=== PATIENT | female | born 1990 | race Caucasian/White ===

== ENCOUNTER 2018-06-08 19:25 | Inpatient (IN) | payer BC ==
[2018-06-08] MEDS ORDERED: hydrOXYzine Pamoate 25 MG Cap PO ONE (20:25)
[2018-06-08] MEDS ORDERED: Tranexamic Acid 1,000 MG in Sodium Chloride 0.9% 100 ML IV PRN (21:58)
[2018-06-08] MEDS ORDERED: Sodium Chloride 0.9% 2.5 ML Syringe FLUSH PRN (21:58)
[2018-06-08] MEDS ORDERED: Butorphanol 1 MG/ML SDV IVPUSH PRN (21:58)
[2018-06-08] MEDS ORDERED: Methylergonovine 0.2 MG/1 ML Amp IM PRN (21:58)
[2018-06-08] MEDS ORDERED: Nalbuphine 10 MG/1 ML Vial IVPUSH PRN (21:58)
[2018-06-08] MEDS ORDERED: Sodium Chloride 0.9% 10 ML Syringe FLUSH PRN (21:58)
[2018-06-08] MEDS ORDERED: Water For Irrigation,Sterile 1,000 ML Container IRR PRN (21:58)
[2018-06-08] MEDS ORDERED: Carboprost Tromethamine 250 MCG/1 ML Amp IM PRN (21:58)
[2018-06-08] MEDS ORDERED: Lidocaine 1% 50 ML MDV INJECT PRN (21:58)
[2018-06-08] MEDS ORDERED: Misoprostol 200 MCG Tab PO PRN (21:58)
[2018-06-08] MEDS ORDERED: Oxytocin/0.9 % Sodium Chloride 30 UNIT/500 ML BAG IV SCH (22:00)
[2018-06-08] MEDS: Lactated Ringers 1,000 ML IV SCH ×2 (22:21→23:12)
[2018-06-08] MEDS ORDERED: fentaNYL 100 MCG/2 ML SDV ONE (22:48)
--- NOTE | 2018-06-08 23:09 | PCM.PREANE ---
Preanesthetic Assessment - Anesthesia/Transfusion/Family Hx Anesthesia History: Prior Anesthesia Without Reaction Family History of Anesthesia Reaction: No Intubation History: Unknown - Review of Systems General: Other (labor pain with rapid progression) Pulmonary: No Symptoms Cardiovascular: No Symptoms Gastrointestinal: No Symptoms Neurological: No Symptoms Other: Reports: None - Physical Assessment NPO Status Date: 06/08/18 NPO Status Time: 22:00 Blood Pressure: 115/74 Height: 5 ft 8 in Weight: 174 lb ASA Class: 2 Mental Status: Alert & Oriented x3 Airway Class: Mallampati = 2 Dentition: Reports: Normal Dentition ROM/Head Extension: Full Lungs: Clear to Auscultation, Normal Respiratory Effort Cardiovascular: Regular Rate, Regular Rhythm - Lab Values: Laboratory Last Values WBC 9.15 K/uL (4.0-11.0) 06/08/18 22: RBC 4.33 M/uL (4.30-5.90) 06/08/18 22:28 Hgb 10.9 g/dL (12.0-16.0) L 06/08/18 22:28 Hct 34.0 % (36.0-46.0) L 06/08/18 22:28 MCV 78.5 fL (80.0-98.0) L 06/08/18 22:28 MCH 25.2 pg (27.0-32.0) L 06/08/18 22:28 MCHC 32.1 g/dL (31.0-37.0) 06/08/18 22:28 RDW Std Deviation 39.1 fl (28.0-62.0) 06/08/18 22:28 RDW Coeff of Estiven 14 % (11.0-15.0) 06/08/18 22:28 Plt Count 173 K/uL (150-400) 06/08/18 22:28 MPV 9.90 fL (7.40-12.00) 06/08/18 22:28 Nucleated RBC % 0.0 /100WBC 06/08/18 22:28 Nucleated RBCs # 0 K/uL 06/08/18 22:28 Membrane Rupture POSITIVE 06/08/18 21:45 - Allergies Allergies/Adverse Reactions: Allergies Allergy/AdvReac Type Severity Reaction Status Date / Time No Known Allergies Allergy Verified 06/26/14 15:14 - Blood Blood Available: No Product(s) Available: None - Anesthesia Plan Free Text/Narrative:: SAB for rapid progression of labor - if labor slows down, willing to place epidural if needed - Acknowledgements Anesthesia Type Planned: Spinal Pt an Appropriate Candidate for the Planned Anesthesia: Yes Alternatives and Risks of Anesthesia Discussed w Pt/Guardian: Yes Pt/Guardian Understands and Agrees with Anesthesia Plan: Yes PreAnesthesia Questionnaire 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: Neurological History: Reports: Cerebral Palsy, Seizure (one time approx 4 yrs ago - currently not on any medications) Psychiatric History: Reports: Anxiety - Past Surgical History HEENT Surgical History: Reports: Oral Surgery Musculoskeletal Surgical History: Reports: Other (See Below) (bilateral knee surgery) - HOME MEDS Home Medications: Home Meds PNV95/Ferrous Fumarate/FA [ Tablet] 06/26/14 [History] - CURRENT (IN HOUSE) MEDS Current Meds: Current Medications Butorphanol Tartrate (Stadol) 1 mg IVPUSH Q1H PRN PRN Reason: Pain Carboprost Tromethamine (Hemabate Ds) 250 mcg IM ASDIRECTED PRN PRN Reason: Post Hemorrhage Tranexamic Acid 1,000 mg/ (Sodium Chloride) 110 mls @ 660 mls/hr IV ONETIME PRN PRN Reason: Bleeding Lactated Ringer's (Ringers, Lactated) 1,000 mls @ 150 mls/hr IV ASDIRECTED LEXI Oxytocin/Sodium Chloride (Oxytocin 30 Unit/500 Ml-Ns) 30 unit in 500 mls @ 999 mls/hr IV TITRATE LEXI Lidocaine HCl (Xylocaine 1%) 50 ml INJECT .ONCE PRN PRN Reason: Laceration repair Methylergonovine Maleate (Methergine) 0.2 mg IM ASDIRECTED PRN PRN Reason: Post Hemorrhage Misoprostol (Cytotec) 200 mcg PO .ONCE PRN PRN Reason: Post Hemorrhage Nalbuphine HCl (Nubain) 10 mg IVPUSH Q1H PRN PRN Reason: Pain (severe 7-10) Sodium Chloride (Saline Flush) 10 ml FLUSH ASDIRECTED PRN PRN Reason: Keep Vein Open Sodium Chloride (Saline Flush) 2.5 ml FLUSH ASDIRECTED PRN PRN Reason: Keep Vein Open Sterile Water (Sterile Water For Irrigation) 1,000 ml IRR ASDIRECTED PRN PRN Reason: delivery Discontinued Medications Fentanyl (Sublimaze) Confirm Administered Dose 100 mcg .ROUTE .STK-MED ONE Stop: 06/08/18 22:49 Hydroxyzine Pamoate (Vistaril) 25 mg PO ONETIME ONE Stop: 06/08/18 20:26 Last Admin: 06/08/18 20:38 Dose: 25 mg
[2018-06-09] MEDS ORDERED: Lanolin 100% Cream 7 GM Tube TOP PRN (00:24)
[2018-06-09] MEDS ORDERED: Benzocaine/Menthol 20%-0.5% Spray 78 GM Cannister TOP PRN (00:24)
[2018-06-09] MEDS ORDERED: Ibuprofen 400 MG Tab PO PRN (00:24)
[2018-06-09] MEDS ORDERED: Docusate Sodium 100 MG Cap PO PRN (00:24)
[2018-06-09] MEDS ORDERED: Witch Hazel Medicated Pads 40/Jar TOP PRN (00:24)
[2018-06-09] MEDS ORDERED: oxyCODONE 5 MG Tab PO PRN (00:24)
[2018-06-09] MEDS ORDERED: Bisacodyl 10 MG Supp RECTAL PRN (00:24)
[2018-06-09] MEDS ORDERED: Acetaminophen 500 MG Tab PO PRN ×2 (00:24)
--- NOTE | 2018-06-09 00:29 | PCM.DEL ---
L & D Note - General Info Date of Service: 06/08/18 - Delivery Note Labor: Spontaneous Delivery Outcome: Livebirth Presentation: Right Occiput Anterior (JUAN) Nuchal Cord: None Anesthesia Type: None, Epidural Amniotic Fluid Description: Meconium Stained Episiotomy Type: None Laceration: None Placenta: Spontaneous Cord: 3 Vessels Estimated Blood Loss: 350 Resuscitation Needed: No [place]: Suctioned, Bulb Syringe Score 1 min: 8 Score 5 min: 9 Delivery Comments (Free Text/Narrative):: Live male delivered at 2325 8/9 , wt 3560g . 3VC , intact perineum - General Info Date of Service: 06/08/18 - Patient Data Vitals - Most Recent: Last Vital Signs Temp Pulse Resp BP 115/74 06/08/18 23:09 Pulse Ox Weight - Most Recent: 78.925 kg Lab Results Last 24 Hours: Laboratory Results - last 24 hr 06/08/18 06/08/18 06/08/18 Range/Units 21:45 22:28 22:28 WBC 9.15 (4.0-11.0) K/uL RBC 4.33 (4.30-5.90) M/uL Hgb 10.9 L (12.0-16.0) g/dL Hct 34.0 L (36.0-46.0) % MCV 78.5 L (80.0-98.0) fL MCH 25.2 L (27.0-32.0) pg MCHC 32.1 (31.0-37.0) g/dL RDW Std Deviation 39.1 (28.0-62.0) fl RDW Coeff of Estiven 14 (11.0-15.0) % Plt Count 173 (150-400) K/uL MPV 9.90 (7.40-12.00) fL Nucleated RBC % 0.0 /100WBC Nucleated RBCs # 0 K/uL Membrane Rupture POSITIVE Blood Type A POSITIVE Antibody Screen NEGATIVE Med Orders - Current: Current Medications Carboprost Tromethamine (Hemabate Ds) 250 mcg IM ASDIRECTED PRN PRN Reason: Post Hemorrhage Tranexamic Acid 1,000 mg/ (Sodium Chloride) 110 mls @ 660 mls/hr IV ONETIME PRN PRN Reason: Bleeding Lactated Ringer's (Ringers, Lactated) 1,000 mls @ 150 mls/hr IV ASDIRECTED LEXI Last Admin: 06/08/18 23:12 Dose: 150 mls/hr Oxytocin/Sodium Chloride (Oxytocin 30 Unit/500 Ml-Ns) 30 unit in 500 mls @ 999 mls/hr IV TITRATE LEXI Lidocaine HCl (Xylocaine 1%) 50 ml INJECT .ONCE PRN PRN Reason: Laceration repair Methylergonovine Maleate (Methergine) 0.2 mg IM ASDIRECTED PRN PRN Reason: Post Hemorrhage Misoprostol (Cytotec) 200 mcg PO .ONCE PRN PRN Reason: Post Hemorrhage Nalbuphine HCl (Nubain) 10 mg IVPUSH Q1H PRN PRN Reason: Pain (severe 7-10) Sodium Chloride (Saline Flush) 10 ml FLUSH ASDIRECTED PRN PRN Reason: Keep Vein Open Sodium Chloride (Saline Flush) 2.5 ml FLUSH ASDIRECTED PRN PRN Reason: Keep Vein Open Sterile Water (Sterile Water For Irrigation) 1,000 ml IRR ASDIRECTED PRN PRN Reason: delivery Discontinued Medications Butorphanol Tartrate (Stadol) 1 mg IVPUSH Q1H PRN PRN Reason: Pain Fentanyl (Sublimaze) Confirm Administered Dose 100 mcg .ROUTE .STK-MED ONE Stop: 06/08/18 22:49 Hydroxyzine Pamoate (Vistaril) 25 mg PO ONETIME ONE Stop: 06/08/18 20:26 Last Admin: 06/08/18 20:38 Dose: 25 mg - Problem List & Annotations (1) Vaginal delivery SNOMED Code(s): 201788227 Code(s): O80 - ENCOUNTER FOR FULL-TERM UNCOMPLICATED DELIVERY Status: Acute Current Visit: Yes - Problem List Review Problem List Initiated/Reviewed/Updated: Yes - My Orders Last 24 Hours: My Active Orders 06/08/18 20:06 Patient Status [ADT] Routine Non Stress Test [RC] PER UNIT ROUTINE Up ad Sabina [RC] ASDIRECTED Vaginal Exam [RC] Click to Edit Vital Signs [RC] PER UNIT ROUTINE 06/08/18 21:58 Patient Status [ADT] Routine Heart Tones [RC] CONTINUOUS Non Stress Test [RC] PER UNIT ROUTINE May Shower [RC] ASDIRECTED Notify Provider [RC] PRN Up ad Sabina [RC] ASDIRECTED Vaginal Exam [RC] PRN Vital Signs [RC] PER UNIT ROUTINE Carboprost Tromethamine [Hemabate DS] 250 mcg IM ASDIRECTED PRN Lidocaine 1% [Xylocaine 1%] 50 ml INJECT .ONCE PRN Methylergonovine [Methergine] 0.2 mg IM ASDIRECTED PRN Misoprostol [Cytotec] 200 mcg PO .ONCE PRN Nalbuphine [Nubain] 10 mg IVPUSH Q1H PRN Sodium Chloride 0.9% [Saline Flush] 10 ml FLUSH ASDIRECTED PRN Sodium Chloride 0.9% [Saline Flush] 2.5 ml FLUSH ASDIRECTED PRN Tranexamic Acid [Cyklokapron] 1,000 mg Sodium Chloride 0.9% [Normal Saline] 100 ml IV ONETIME Water For Irrigation,Sterile [Sterile Water for Irrigation] 1,000 ml IRR ASDIRECTED PRN Peripheral IV Insertion Adult [OM.PC] Routine 06/08/18 22:00 Lactated Ringers [Ringers, Lactated] 1,000 ml IV ASDIRECTED Oxytocin/0.9 % Sodium Chloride [Oxytocin 30 Unit/500 ML-NS] 30 unit in 500 ml IV TITRATE 06/09/18 00:24 Patient Status [ADT] Routine May Shower [RC] ASDIRECTED Up ad Sabina [RC] ASDIRECTED Vital Signs [RC] PER UNIT ROUTINE Acetaminophen [Tylenol Extra Strength] 1,000 mg PO Q4H PRN Acetaminophen [Tylenol Extra Strength] 500 mg PO Q4H PRN Benzocaine/Menthol [Dermoplast Pain Relief 20%-0.5% [place]] 78 gm TOP ASDIRECTED PRN Bisacodyl [Dulcolax] 10 mg RECTAL .ONCE PRN Docusate Sodium [Colace] 100 mg PO BID PRN Ibuprofen [Motrin] 400 mg PO Q4H PRN Ibuprofen [Motrin] 800 mg PO Q6H PRN Lanolin [Lansinoh HPA] See Dose Instructions TOP ASDIRECTED PRN Witch Karolina [Tucks] 1 pad TOP ASDIRECTED PRN oxyCODONE 5 mg PO Q2H PRN Assess Lochia [WOMSER] Per Unit Routine Assess Uterine Involution [WOMSER] Per Unit Routine Peripheral IV Discontinue [OM.PC] Routine Resuscitation Status Routine 06/09/18 10:00 Measles, Mumps & Rubella [M-M-R II Vaccine] 0.5 ml SUBCUT .ONCE ONE 06/10/18 05:11 HEMOGLOBIN/HEMATOCRIT,HH [HEME] Timed
--- NOTE | 2018-06-09 01:19 | OR ---
SURGEON: ASHLYN LISA DATE OF PROCEDURE: 06/08/2018 PREOPERATIVE DIAGNOSIS: A 27-year-old G3, P2-0-0-2, at 39 weeks 5 days, admitted in early labor, had a normal spontaneous vaginal delivery. POSTOPERATIVE DIAGNOSIS: A 27-year-old G3, P2-0-0-2, at 39 weeks 5 days, admitted in early labor, had a normal spontaneous vaginal delivery. PROCEDURE: Normal spontaneous vaginal delivery. ESTIMATED BLOOD LOSS: 350 mL. ANESTHESIA: Epidural. FINDINGS: A live female , delivered at 2325 hours. scores were 8 and 9. Weight was 3560 g. Three-vessel cord. Perineum was intact. BRIEF HISTORY ABOUT PATIENT: She is a 27-year-old G3, P2-0-0-2, who came in early labor. She made change from 2 cm to 4 cm then fully dilated. She also spontaneously ruptured membranes prior and had thick meconium . The patient was encouraged to push. Intrapartum , the patient had a category 1 heart tracing. DESCRIPTION OF PROCEDURE: With the patient's good pushing effort, she delivered the head, followed by the anterior and posterior shoulders, and the body of the . The paste mixing supervisor was present and the infant was placed on the maternal abdomen, and the cord was clamped and cut, cord gases was obtained and the placenta was then delivered via controlled cord traction. The perineum was noted to be intact. All instrument and pad count were correct x2. The patient was left with in stable condition. MARGI DANG /[id number] QI
[2018-06-09] MEDS: Ibuprofen 800 MG Tab PO PRN ×2 (02:02→17:20)
--- NOTE | 2018-06-09 07:22 | PCM.PNPP ---
- General Info Date of Service: 06/09/18 Subjective Update: 27 yo s/p PPD1 , denies any complains Functional Status: Reports: Pain Controlled - Review of Systems General: Reports: No Symptoms HEENT: Reports: No Symptoms Pulmonary: Reports: No Symptoms Cardiovascular: Reports: No Symptoms Gastrointestinal: Reports: No Symptoms Genitourinary: Reports: No Symptoms Musculoskeletal: Reports: No Symptoms Skin: Reports: No Symptoms Neurological: Reports: No Symptoms - General Info Date of Service: 06/09/18 - Patient Data Vital Signs - Most Recent: Last Vital Signs Temp 36.7 C 06/09/18 04:42 Pulse 92 06/09/18 04:42 Resp 16 06/09/18 04:42 BP 108/58 L 06/09/18 04:42 Pulse Ox 95 06/09/18 04:42 Weight - Most Recent: 78.925 kg Lab Results - Last 24 Hours: Laboratory Results - last 24 hr 06/08/18 06/08/18 06/08/18 Range/Units 21:45 22:28 22:28 WBC 9.15 (4.0-11.0) K/uL RBC 4.33 (4.30-5.90) M/uL Hgb 10.9 L (12.0-16.0) g/dL Hct 34.0 L (36.0-46.0) % MCV 78.5 L (80.0-98.0) fL MCH 25.2 L (27.0-32.0) pg MCHC 32.1 (31.0-37.0) g/dL RDW Std Deviation 39.1 (28.0-62.0) fl RDW Coeff of Estiven 14 (11.0-15.0) % Plt Count 173 (150-400) K/uL MPV 9.90 (7.40-12.00) fL Nucleated RBC % 0.0 /100WBC Nucleated RBCs # 0 K/uL Membrane Rupture POSITIVE Blood Type A POSITIVE Antibody Screen NEGATIVE Med Orders - Current: Current Medications Acetaminophen (Tylenol Extra Strength) 500 mg PO Q4H PRN PRN Reason: Pain Acetaminophen (Tylenol Extra Strength) 1,000 mg PO Q4H PRN PRN Reason: Pain Benzocaine/Menthol (Dermoplast Pain Relief 20%-0.5% [place]) 78 gm TOP ASDIRECTED PRN PRN Reason: Perineal Comfort Measure Last Admin: 06/09/18 02:00 Dose: 78 gm Bisacodyl (Dulcolax) 10 mg RECTAL .ONCE PRN PRN Reason: Constipation Carboprost Tromethamine (Hemabate Ds) 250 mcg IM ASDIRECTED PRN PRN Reason: Post Hemorrhage Docusate Sodium (Colace) 100 mg PO BID PRN PRN Reason: Constipation Last Admin: 06/09/18 02:03 Dose: 100 mg Emollient Ointment (Lansinoh Hpa) 0 gm TOP ASDIRECTED PRN PRN Reason: Sore Nipples Last Admin: 06/09/18 02:03 Dose: 7 gm Tranexamic Acid 1,000 mg/ (Sodium Chloride) 110 mls @ 660 mls/hr IV ONETIME PRN PRN Reason: Bleeding Lactated Ringer's (Ringers, Lactated) 1,000 mls @ 150 mls/hr IV ASDIRECTED LEXI Last Admin: 06/08/18 23:12 Dose: 150 mls/hr Oxytocin/Sodium Chloride (Oxytocin 30 Unit/500 Ml-Ns) 30 unit in 500 mls @ 999 mls/hr IV TITRATE [facility] Last Admin: 06/08/18 23:25 Dose: 999 mls/hr Ibuprofen (Motrin) 400 mg PO Q4H PRN PRN Reason: Pain Ibuprofen (Motrin) 800 mg PO Q6H PRN PRN Reason: Pain Last Admin: 06/09/18 02:02 Dose: 800 mg Lidocaine HCl (Xylocaine 1%) 50 ml INJECT .ONCE PRN PRN Reason: Laceration repair Measles/Mumps/Rubella Vaccine Live (M-M-R Ii Vaccine) 0.5 ml SUBCUT .ONCE ONE Stop: 06/09/18 10:01 Methylergonovine Maleate (Methergine) 0.2 mg IM ASDIRECTED PRN PRN Reason: Post Hemorrhage Misoprostol (Cytotec) 200 mcg PO .ONCE PRN PRN Reason: Post Hemorrhage Nalbuphine HCl (Nubain) 10 mg IVPUSH Q1H PRN PRN Reason: Pain (severe 7-10) Oxycodone HCl (Oxycodone) 5 mg PO Q2H PRN PRN Reason: Pain Sodium Chloride (Saline Flush) 10 ml FLUSH ASDIRECTED PRN PRN Reason: Keep Vein Open Sodium Chloride (Saline Flush) 2.5 ml FLUSH ASDIRECTED PRN PRN Reason: Keep Vein Open Sterile Water (Sterile Water For Irrigation) 1,000 ml IRR ASDIRECTED PRN PRN Reason: delivery Sendy Turcios (Tucks) 1 pad TOP ASDIRECTED PRN PRN Reason: comfort care Last Admin: 06/09/18 02:01 Dose: 1 pad Discontinued Medications Butorphanol Tartrate (Stadol) 1 mg IVPUSH Q1H PRN PRN Reason: Pain Fentanyl (Sublimaze) Confirm Administered Dose 100 mcg .ROUTE .STK-MED ONE Stop: 06/08/18 22:49 Last Admin: 06/09/18 05:54 Dose: Not Given Hydroxyzine Pamoate (Vistaril) 25 mg PO ONETIME ONE Stop: 06/08/18 20:26 Last Admin: 06/08/18 20:38 Dose: 25 mg - Interaction Support Person: - Recovery Exam Fundal Tone: Firm Fundal Level: 1 Fingerbreadths Below Umbilicus Fundal Placement: Midline Lochia Amount: Scant, Small Lochia Color: Rubra/Red Perineum Description: Intact, Minimal Bruising/Swelling Episiotomy/Laceration: None Bladder Status: Voiding Urinary Elimination: Voided - Exam General: Alert HEENT: Pupils Equal Neck: Supple Lungs: Clear to Auscultation Cardiovascular: Regular Rate, Regular Rhythm GI/Abdominal Exam: Normal Bowel Sounds Extremities: Normal Inspection Skin: Warm Neurological: No New Focal Deficit Psy/Mental Status: Alert - Problem List & Annotations (1) Vaginal delivery SNOMED Code(s): 940451990 Code(s): O80 - ENCOUNTER FOR FULL-TERM UNCOMPLICATED DELIVERY Status: Acute Current Visit: Yes - Problem List Review Problem List Initiated/Reviewed/Updated: Yes - My Orders Last 24 Hours: My Active Orders 06/08/18 20:06 Patient Status [ADT] Routine Non Stress Test [RC] PER UNIT ROUTINE Up ad Sabina [RC] ASDIRECTED Vital Signs [RC] PER UNIT ROUTINE 06/08/18 21:58 Patient Status [ADT] Routine Heart Tones [RC] CONTINUOUS Non Stress Test [RC] PER UNIT ROUTINE May Shower [RC] ASDIRECTED Notify Provider [RC] PRN Carboprost Tromethamine [Hemabate DS] 250 mcg IM ASDIRECTED PRN Lidocaine 1% [Xylocaine 1%] 50 ml INJECT .ONCE PRN Methylergonovine [Methergine] 0.2 mg IM ASDIRECTED PRN Misoprostol [Cytotec] 200 mcg PO .ONCE PRN Nalbuphine [Nubain] 10 mg IVPUSH Q1H PRN Sodium Chloride 0.9% [Saline Flush] 10 ml FLUSH ASDIRECTED PRN Sodium Chloride 0.9% [Saline Flush] 2.5 ml FLUSH ASDIRECTED PRN Tranexamic Acid [Cyklokapron] 1,000 mg Sodium Chloride 0.9% [Normal Saline] 100 ml IV ONETIME Water For Irrigation,Sterile [Sterile Water for Irrigation] 1,000 ml IRR ASDIRECTED PRN Peripheral IV Insertion Adult [OM.PC] Routine 06/08/18 22:00 Lactated Ringers [Ringers, Lactated] 1,000 ml IV ASDIRECTED Oxytocin/0.9 % Sodium Chloride [Oxytocin 30 Unit/500 ML-NS] 30 unit in 500 ml IV TITRATE 06/09/18 00:24 Patient Status [ADT] Routine May Shower [RC] ASDIRECTED Up ad Sabina [RC] ASDIRECTED Vital Signs [RC] PER UNIT ROUTINE Acetaminophen [Tylenol Extra Strength] 1,000 mg PO Q4H PRN Acetaminophen [Tylenol Extra Strength] 500 mg PO Q4H PRN Benzocaine/Menthol [Dermoplast Pain Relief 20%-0.5% [place]] 78 gm TOP ASDIRECTED PRN Bisacodyl [Dulcolax] 10 mg RECTAL .ONCE PRN Docusate Sodium [Colace] 100 mg PO BID PRN Ibuprofen [Motrin] 400 mg PO Q4H PRN Ibuprofen [Motrin] 800 mg PO Q6H PRN Lanolin [Lansinoh HPA] See Dose Instructions TOP ASDIRECTED PRN Witch Karolina [Tucks] 1 pad TOP ASDIRECTED PRN oxyCODONE 5 mg PO Q2H PRN Assess Lochia [WOMSER] Per Unit Routine Assess Uterine Involution [WOMSER] Per Unit Routine Peripheral IV Discontinue [OM.PC] Routine Resuscitation Status Routine 06/09/18 10:00 Measles, Mumps & Rubella [M-M-R II Vaccine] 0.5 ml SUBCUT .ONCE ONE 06/09/18 Breakfast Regular Diet [DIET] 06/10/18 05:11 HEMOGLOBIN/HEMATOCRIT,HH [HEME] Timed - Assessment Assessment:: 27 yo s/p PPD 1 , stable - Plan Plan:: Routine care Continue
[2018-06-09] MEDS ORDERED: Nalbuphine 10 MG/ML 10 ML MDV IVPUSH PRN (07:30)
--- NOTE | 2018-06-09 09:41 | PCM48HPAN ---
Post Anesthesia Note - EVALUATION WITHIN 48HRS OF ANESTHETIC Vital Signs in Normal Range: Yes Patient Participated in Evaluation: Yes Respiratory Function Stable: Yes Airway Patent: Yes Cardiovascular Function Stable: Yes Hydration Status Stable: Yes Pain Control Satisfactory: Yes Nausea and Vomiting Control Satisfactory: Yes Mental Status Recovered: Yes Resp Rate: 16 Blood Pressure: 115/74
[2018-06-09] MEDS ORDERED: Measles, Mumps & Rubella Vaccine 0.5 ML SDV SUBCUT ONE (10:00)
[2018-06-10] MEDS: Ibuprofen 800 MG Tab PO PRN (06:32)
[2018-06-10 08:08] VITALS: BP 123/77
--- NOTE | 2018-06-10 08:49 | PCM.PNPP ---
- General Info Date of Service: 06/10/18 Admission Dx/Problem (Free Text): PPD#1 after , stable working on . Functional Status: Reports: Pain Controlled, Tolerating Diet, Ambulating, Urinating - Review of Systems General: Reports: No Symptoms HEENT: Reports: No Symptoms Pulmonary: Reports: No Symptoms Cardiovascular: Reports: No Symptoms Gastrointestinal: Reports: No Symptoms Genitourinary: Reports: No Symptoms Musculoskeletal: Reports: No Symptoms Skin: Reports: No Symptoms Neurological: Reports: No Symptoms Psychiatric: Reports: No Symptoms - Patient Data Vital Signs - Most Recent: Last Vital Signs Temp 36.2 C 06/10/18 08:07 Pulse 102 H 06/10/18 08:07 Resp 16 06/10/18 08:07 BP 123/77 06/10/18 08:07 Pulse Ox 96 06/10/18 08:07 Weight - Most Recent: 78.925 kg Lab Results - Last 24 Hours: Laboratory Results - last 24 hr 06/10/18 Range/Units 05:22 Hgb 10.1 L (12.0-16.0) g/dL Hct 32.0 L (36.0-46.0) % Med Orders - Current: Current Medications Acetaminophen (Tylenol Extra Strength) 500 mg PO Q4H PRN PRN Reason: Pain Acetaminophen (Tylenol Extra Strength) 1,000 mg PO Q4H PRN PRN Reason: Pain Benzocaine/Menthol (Dermoplast Pain Relief 20%-0.5% [place]) 78 gm TOP ASDIRECTED PRN PRN Reason: Perineal Comfort Measure Last Admin: 06/09/18 02:00 Dose: 78 gm Bisacodyl (Dulcolax) 10 mg RECTAL .ONCE PRN PRN Reason: Constipation Carboprost Tromethamine (Hemabate Ds) 250 mcg IM ASDIRECTED PRN PRN Reason: Post Hemorrhage Docusate Sodium (Colace) 100 mg PO BID PRN PRN Reason: Constipation Last Admin: 06/09/18 02:03 Dose: 100 mg Emollient Ointment (Lansinoh Hpa) 0 gm TOP ASDIRECTED PRN PRN Reason: Sore Nipples Last Admin: 06/09/18 02:03 Dose: 7 gm Tranexamic Acid 1,000 mg/ (Sodium Chloride) 110 mls @ 660 mls/hr IV ONETIME PRN PRN Reason: Bleeding Lactated Ringer's (Ringers, Lactated) 1,000 mls @ 150 mls/hr IV ASDIRECTED [facility] Last Admin: 06/08/18 23:12 Dose: 150 mls/hr Oxytocin/Sodium Chloride (Oxytocin 30 Unit/500 Ml-Ns) 30 unit in 500 mls @ 999 mls/hr IV TITRATE [facility] Last Admin: 06/08/18 23:25 Dose: 999 mls/hr Ibuprofen (Motrin) 400 mg PO Q4H PRN PRN Reason: Pain Ibuprofen (Motrin) 800 mg PO Q6H PRN PRN Reason: Pain Last Admin: 06/10/18 06:32 Dose: 800 mg Lidocaine HCl (Xylocaine 1%) 50 ml INJECT .ONCE PRN PRN Reason: Laceration repair Methylergonovine Maleate (Methergine) 0.2 mg IM ASDIRECTED PRN PRN Reason: Post Hemorrhage Misoprostol (Cytotec) 200 mcg PO .ONCE PRN PRN Reason: Post Hemorrhage Nalbuphine HCl (Nubain) 10 mg IVPUSH Q1H PRN PRN Reason: Pain (severe 7-10) Oxycodone HCl (Oxycodone) 5 mg PO Q2H PRN PRN Reason: Pain Sodium Chloride (Saline Flush) 10 ml FLUSH ASDIRECTED PRN PRN Reason: Keep Vein Open Sodium Chloride (Saline Flush) 2.5 ml FLUSH ASDIRECTED PRN PRN Reason: Keep Vein Open Sterile Water (Sterile Water For Irrigation) 1,000 ml IRR ASDIRECTED PRN PRN Reason: delivery Sendy Turcios ([place]) 1 pad TOP ASDIRECTED PRN PRN Reason: comfort care Last Admin: 06/09/18 02:01 Dose: 1 pad Discontinued Medications Butorphanol Tartrate (Stadol) 1 mg IVPUSH Q1H PRN PRN Reason: Pain Fentanyl (Sublimaze) Confirm Administered Dose 100 mcg .ROUTE .STK-MED ONE Stop: 06/08/18 22:49 Last Admin: 06/09/18 05:54 Dose: Not Given Hydroxyzine Pamoate (Vistaril) 25 mg PO ONETIME ONE Stop: 06/08/18 20:26 Last Admin: 06/08/18 20:38 Dose: 25 mg Measles/Mumps/Rubella Vaccine Live (M-M-R Ii Vaccine) 0.5 ml SUBCUT .ONCE ONE Stop: 06/09/18 10:01 Nalbuphine HCl (Nubain) 10 mg IVPUSH Q1H PRN PRN Reason: Pain (severe 7-10) - Interaction Support Person: - Recovery Exam Fundal Tone: Firm Fundal Level: 2 Fingerbreadths Below Umbilicus Fundal Placement: Midline Lochia Amount: Small Lochia Color: Rubra/Red Perineum Description: Intact, Minimal Bruising/Swelling Episiotomy/Laceration: None Bladder Status: Voiding Urinary Elimination: Voided - Exam General: Alert, Oriented HEENT: Pupils Equal Neck: Supple Lungs: Normal Respiratory Effort GI/Abdominal Exam: Soft, Non-Tender, No Distention, No Mass Extremities: Normal Inspection, Normal Range of Motion, Non-Tender, No Pedal Edema, Normal Capillary Refill Skin: Warm, Dry, Intact Neurological: No New Focal Deficit Psy/Mental Status: Alert, Normal Affect, Normal Mood - Problem List & Annotations (1) Vaginal delivery SNOMED Code(s): 812706463 Code(s): O80 - ENCOUNTER FOR FULL-TERM UNCOMPLICATED DELIVERY Status: Acute Current Visit: Yes - Problem List Review Problem List Initiated/Reviewed/Updated: Yes - Assessment Assessment:: 27 yo s/p PPD 2, well. Minimal lochia, minimal pain would like to go home today. - Plan Plan:: Discharge instructions reviewed. Continue vitamins while , dismiss to home today.
== END 2018-06-10 11:18 | disposition home or self-care (01) | DRG 560 ==
LOC: MW.OBCHECK 19:25 → MW.OB 19:29 → MW.OBCHECK 21:58 → OBSVTOIN 23:25
PROVIDERS: ADMIT Obstetrics & Gynecology; ATTEND Obstetrics & Gynecology
PROC: 10E0XZZ Delivery of Products of Conception, External Approach (ICD-10-PCS; principal; 2018-06-08)
DX: O42.02 Full-term premature rupture of membranes, onset of labor within 24 hours of rupture (principal); Z3A.39 39 weeks gestation of pregnancy; Z37.0 Single live birth
CPT/HCPCS: 36415; 59025; 59409; 84112; 85014; 85018; 85027; 86850; 86900; 86901; 90471; 90707; A9270-GY; J2590; J7120

== ENCOUNTER 2020-10-08 12:22 | Emergency (ER) | payer BC ==
[2020-10-08 13:22] VITALS: BP 131/84; PULSE 96
--- NOTE | 2020-10-08 13:30 | EDM.PDOC ---
ED HPI GENERAL MEDICAL PROBLEM - General Chief Complaint: General Stated Complaint: KNEE AND HAND INJURY,SLIPPED ON ICE Time Seen by Provider: 10/08/20 13:18 Source of Information: Reports: Patient History Limitations: Reports: No Limitations - History of Present Illness INITIAL COMMENTS - FREE TEXT/NARRATIVE: 29-year-old female PMHx cerebral palsy presents with pain in her left hand and left knee following a fall on ice. Patient slipped and fell forward. She notes that her kneecap "popped out and popped back in". She notes that she has history of surgery on bilateral knees and that this is not an infrequent occurrence. She has been able to bear weight after the fall, denies hitting her head or LOC. Still has some mild pain in the knee but much improved. She does complain of deformity and pain in the fourth digit of her left hand. 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: Musculoskeletal History: Reports: None Other Musculoskeletal History: Broken L ankle, sx on bilat knees patellar dislocations Neurological History: Reports: Cerebral Palsy, Seizure Other Neuro History: Affects L side Psychiatric History: Reports: Anxiety Endocrine/Metabolic History: Reports: None Hematologic History: Reports: None Immunologic History: Reports: None Oncologic (Cancer) History: Reports: None Dermatologic History: Reports: None - Infectious Disease History Infectious Disease History: Reports: Chicken Pox - Past Surgical History Head Surgeries/Procedures: Reports: None HEENT Surgical History: Reports: Oral Surgery GI Surgical History: Reports: None Female Surgical History: Reports: None Musculoskeletal Surgical History: Reports: Other (See Below) Oncologic Surgical History: Reports: None Dermatological Surgical History: Reports: None Social & Family History - Family History Family Medical History: Noncontributory HEENT: Reports: None GI: Reports: None : Reports: None OBGYN: Reports: None Musculoskeletal: Reports: None Neurological: Reports: None Endocrine/Metabolic: Reports: Diabetes, type II, Other (See Below) Other Endocrine/Metabolic Family History: grandfather Hematologic: Reports: None Immunologic: Reports: None Dermatologic: Reports: None Oncologic: Reports: None - Caffeine Use Caffeine Use: Reports: None - Recreational Drug Use Recreational Drug Use: No ED ROS GENERAL - Review of Systems Review Of Systems: Comprehensive ROS is negative, except as noted in HPI. ED EXAM, GENERAL - Physical Exam Exam: See Below Exam Limited By: No Limitations General Appearance: Alert, WD/WN, No Apparent Distress Ears: Normal External Exam Nose: Normal Inspection Throat/Mouth: Normal Voice, No Airway Compromise Head: Atraumatic, Normocephalic Neck: Normal Inspection, Non-Tender Respiratory/Chest: No Respiratory Distress, No Accessory Muscle Use Cardiovascular: Normal Peripheral Pulses, Regular Rate, Rhythm Extremities: Other (mild swelling to L knee w/ overlying surgical scar well appearing, negative ballottment, no joint line TTP, normal ROM. moderate swelling and visible deformity to L 4th digit (note patient has baseline deform ities 2/2 CP so hard to tell if acute, is TTP)) Neurological: Alert Psychiatric: Normal Affect, Normal Mood Skin Exam: Warm, Dry, Intact Course - Vital Signs Last Recorded V/S: Last Vital Signs Temp 98.9 F 10/08/20 13:17 Pulse 96 10/08/20 13:17 Resp 18 10/08/20 13:17 BP 131/84 10/08/20 13:17 Pulse Ox 97 10/08/20 13:17 - Orders/Labs/Meds Orders: Active Orders 24 hr Category Date Time Status Hand 2V Lt [CR] Stat Exams 10/08/20 14:55 Ordered Meds: Medications Discontinued Medications Generic Name Dose Route Start Last Admin Trade Name Freq PRN Reason Stop Dose Admin Lidocaine HCl Confirm 10/08/20 13:33 Xylocaine-Mpf 1% Administered 10/08/20 13:34 Dose 5 ml .ROUTE .STK-MED ONE - Re-Assessments/Exams Free Text/Narrative Re-Assessment/Exam: 10/08/20 13:39 Lidocaine 1% applied in digital block on sterilized L 4th digit to anesthetize for ring removal. 5cc infiltrated utilizing digital block. Will f/u XR imaging and dispo accordingly. 10/08/20 13:42 Ring successfully removed by nurse Mac 10/08/20 15:12 Post reduction film is with greatly improved alignment. Will d/c with orthopedic f/u Departure - Departure Time of Disposition: 15:12 Disposition: Home, Self-Care 01 Clinical Impression: Metacarpal bone fracture Qualifiers: Encounter type: initial encounter Metacarpal bone: fourth Fracture type: closed Metacarpal location: unspecified portion of metacarpal Fracture alignment: displaced Laterality: left Qualified Code(s): S62.305A - Unspecified fracture of fourth metacarpal bone, left hand, initial encounter for closed fracture - Discharge Information Prescriptions: Acetaminophen/oxyCODONE [Percocet 325-5 MG] 1 each PO Q6H PRN #9 tab PRN Reason: Pain Instructions: Metacarpal Fracture Referrals: Marc Ortiz MD [Primary Care Provider] - Forms: ED Department Discharge Sepsis Event Note (ED) - Evaluation Sepsis Screening Result: No Definite Risk - Focused Exam Vital Signs: Vital Signs Temp Pulse Resp BP Pulse Ox 10/08/20 13:17 98.9 F 96 18 131/84 97 - My Orders Last 24 Hours: My Active Orders 10/08/20 14:55 Hand 2V Lt [CR] Stat - Assessment/Plan Last 24 Hours: My Active Orders 10/08/20 14:55 Hand 2V Lt [CR] Stat
--- NOTE | 2020-10-08 14:32 | CR ---
Indication: Fall Comparison: None available. Technique: AP amd lateral views left knee were obtained Findings: There is no displaced fracture or dislocation. There is tricompartmental degenerative changes of the knee with medial and patellofemoral joint space loss. There is bone anchors seen within the patella and well corticated opacity adjacent to the inferomedial aspect of the patella. There is a questionable small joint effusion. Impression: Postoperative change of the knees status post bone anchor within the patella. There is mild questionable soft tissue swelling without evidence of displaced fracture. Dictated by Rikki Reyez MD @ Oct 08 2020 2:28PM Signed by Dr. Rikki Reyez @ Oct 08 2020 2:30PM
--- NOTE | 2020-10-08 14:34 | CR ---
Indication: Fall Comparison: None available. Technique: AP amd lateral views left hand were obtained Findings: There is demonstration of a minimally displaced fracture at the base of the proximal 4th phalanx. There is no other displaced fracture identified. The joint spaces are grossly preserved. There is mild prominence of the soft tissues adjacent to the 4th phalanx. Impression: Demonstration of a minimally displaced fracture at the base of the proximal 4th phalanx with associated soft tissue swelling. Dictated by Rikki Reyez MD @ Oct 08 2020 2:30PM Signed by Dr. Rikki Reyez @ Oct 08 2020 2:32PM
--- NOTE | 2020-10-08 15:26 | CR ---
Indication: Injury and pain Technique: One view left hand Comparison: Two views left hand October 08, 2020 Findings: There is slightly improved alignment of comminuted fracture at the base of the proximal 4th phalanx with associated soft tissue swelling. No other acute osseous abnormality is noted. Impression: Improved alignment of comminuted fracture at the base of the proximal 4th phalanx. Dictated by Rikki Reyez MD @ Oct 08 2020 3:25PM Signed by Dr. Rikki Reyez @ Oct 08 2020 3:25PM
== END 2020-10-08 15:40 | disposition home or self-care (01) ==
LOC: MW.ED 12:22
DX: S62.305A Unspecified fracture of fourth metacarpal bone, left hand, initial encounter for closed fracture (principal); W00.0XXA Fall on same level due to ice and snow, initial encounter; Y93.01 Activity, walking, marching and hiking
CPT/HCPCS: 73120-26-LT; 73120-LT; 73140-26-F3; 73140-F3; 73560-26-LT; 73560-LT; 99283; 99283-25

== ENCOUNTER 2025-02-03 17:31 | Emergency (ER) | payer BC ==
[2025-02-03 18:29] LABS: BASOPHILS ABSOLUTE AUTO 0.06 K/uL (0.00-0.20); BASOPHILS PERCENT AUTO 0.5 % (0.0-1.0); EOSINOPHILS ABSOLUTE AUTO 0.16 K/uL (0.00-0.45); EOSINOPHILS PERCENT AUTO 1.4 % (0.0-6.0); HEMATOCRIT 38.6 % (37.0-47.0); HEMOGLOBIN 12.8 g/dL (12.0-16.0); IMMATURE GRAN ABSOLUTE AUTO 0.03 K/uL (0.00-0.05); IMMATURE GRAN PERCENT AUTO 0.3 % (0.0-0.4); LYMPHOCYTES ABSOLUTE AUTO 1.99 K/uL (1.00-4.80); MEAN CORPUSCULAR HEMOGLOBIN 27.7 pg (28.0-32.0); MEAN CORPUSCULAR HGB CONC 33.2 g/dL (32.0-36.0); MEAN CORPUSCULAR VOLUME 83.5 fL (83.0-99.0); MEAN PLATELET VOLUME 10.8 fL (9.4-12.3); MONOCYTES ABSOLUTE AUTO 0.73 K/uL (0.00-0.80); MONOCYTES PERCENT AUTO 6.6 % (0.0-8.0); NEUTROPHILS ABSOLUTE AUTO 8.08 K/uL (1.80-7.70); NEUTROPHILS PERCENT AUTO 73.2 % (41.0-71.0); PLATELET COUNT,PLT 225 K/uL (150-400); RED BLOOD CELL COUNT 4.62 M/uL (4.10-5.30); WHITE BLOOD CELL COUNT,WBC 11.05 K/uL (3.9-11.3)
[2025-02-03 18:30] LABS: APPEARANCE,URINE CLEAR; BILIRUBIN,URINE NEGATIVE (NEGATIVE); COLOR,URINE YELLOW; GLUCOSE,URINE NEGATIVE (NEGATIVE); KETONES,URINE NEGATIVE (NEGATIVE); LEUKOCYTE ESTERASE,URINE NEGATIVE (NEGATIVE); NITRITE,URINE NEGATIVE (NEGATIVE); OCCULT BLOOD,URINE NEGATIVE (NEGATIVE); PH,URINE 5.5 (5.0-8.0); PROTEIN,URINE NEGATIVE (NEGATIVE); UROBILINOGEN,URINE 0.2 EU/dL (<2.0)
[2025-02-03 18:59] LABS: BILIRUBIN TOTAL 0.6 mg/dL (0.2-1.0); CALCIUM 9.1 mg/dL (8.5-10.1); CARBON DIOXIDE,CO2 22.6 mmol/L (21.0-32.0); CREATININE 0.9 mg/dL (0.6-1.0); EST CRCL DRUG DOSING (CG) 87.17 mL/min; POTASSIUM,K 4.1 mmol/L (3.5-5.1); PROTEIN TOTAL,TP 8.1 g/dL (6.4-8.2)
[2025-02-03] MEDS: Iopamidol 755 MG/ML 500 ML Multipack Bottle IVPUSH ONE (19:09)
[2025-02-03 22:46] VITALS: BP 132/93; PULSE 89
== END 2025-02-04 00:20 | disposition home or self-care (01) ==
LOC: MW.ED 17:31
DX: N83.12 Corpus luteum cyst of left ovary (principal)
CPT/HCPCS: 36415; 74177; 76705; 76856; 80053; 81003; 83690; 84703; 85025; 99285; Q9967

== ENCOUNTER 2025-02-05 10:45 | Emergency (ER) | payer BC ==
[2025-02-05 11:09] LABS: BASOPHILS ABSOLUTE AUTO 0.04 K/uL (0.00-0.20); BASOPHILS PERCENT AUTO 0.4 % (0.0-1.0); HEMATOCRIT 39.5 % (37.0-47.0); HEMOGLOBIN 13.2 g/dL (12.0-16.0); IMMATURE GRAN ABSOLUTE AUTO 0.02 K/uL (0.00-0.05); IMMATURE GRAN PERCENT AUTO 0.2 % (0.0-0.4); LYMPHOCYTES ABSOLUTE AUTO 1.35 K/uL (1.00-4.80); LYMPHOCYTES PERCENT AUTO 13.5 % (24.0-44.0); MEAN CORPUSCULAR HEMOGLOBIN 27.6 pg (28.0-32.0); MEAN CORPUSCULAR HGB CONC 33.4 g/dL (32.0-36.0); MEAN CORPUSCULAR VOLUME 82.6 fL (83.0-99.0); MEAN PLATELET VOLUME 10.7 fL (9.4-12.3); NEUTROPHILS ABSOLUTE AUTO 7.92 K/uL (1.80-7.70); NEUTROPHILS PERCENT AUTO 78.9 % (41.0-71.0); PLATELET COUNT,PLT 218 K/uL (150-400); RED BLOOD CELL COUNT 4.78 M/uL (4.10-5.30); WHITE BLOOD CELL COUNT,WBC 10.03 K/uL (3.9-11.3)
[2025-02-05] MEDS: HYDROmorphone 1 MG/ML Syringe IM ONE (11:12)
[2025-02-05] MEDS: Ondansetron 4 MG Tab.DIS PO ONE (11:12)
[2025-02-05 11:25] LABS: CALCIUM 9.1 mg/dL (8.5-10.1); CARBON DIOXIDE,CO2 21.2 mmol/L (21.0-32.0); CREATININE 0.8 mg/dL (0.6-1.0); EST CRCL DRUG DOSING (CG) 98.07 mL/min; POTASSIUM,K 3.8 mmol/L (3.5-5.1)
[2025-02-05 11:46] VITALS: BP 127/85; PULSE 82
== END 2025-02-05 11:45 | disposition home or self-care (01) ==
LOC: MW.ED 10:45
DX: K80.20 Calculus of gallbladder without cholecystitis without obstruction (principal); Z79.899 Other long term (current) drug therapy; Z75.8 Other problems related to medical facilities and other health care
CPT/HCPCS: 36415; 80048; 85025; 96372; 99284; A9270; J1171

== ENCOUNTER 2025-02-06 08:39 | Emergency (ER) | payer BC ==
[2025-02-06] MEDS: Morphine 4 MG/ML Syringe IVPUSH ONE (09:05)
[2025-02-06 09:18] LABS: BASOPHILS ABSOLUTE AUTO 0.03 K/uL (0.00-0.20); BASOPHILS PERCENT AUTO 0.3 % (0.0-1.0); EOSINOPHILS ABSOLUTE AUTO 0.11 K/uL (0.00-0.45); HEMATOCRIT 37.6 % (37.0-47.0); HEMOGLOBIN 12.7 g/dL (12.0-16.0); IMMATURE GRAN ABSOLUTE AUTO 0.02 K/uL (0.00-0.05); IMMATURE GRAN PERCENT AUTO 0.2 % (0.0-0.4); LYMPHOCYTES ABSOLUTE AUTO 1.66 K/uL (1.00-4.80); LYMPHOCYTES PERCENT AUTO 15.5 % (24.0-44.0); MEAN CORPUSCULAR HEMOGLOBIN 27.9 pg (28.0-32.0); MEAN CORPUSCULAR HGB CONC 33.8 g/dL (32.0-36.0); MEAN CORPUSCULAR VOLUME 82.6 fL (83.0-99.0); MEAN PLATELET VOLUME 11.1 fL (9.4-12.3); MONOCYTES PERCENT AUTO 10.3 % (0.0-8.0); NEUTROPHILS ABSOLUTE AUTO 7.77 K/uL (1.80-7.70); NEUTROPHILS PERCENT AUTO 72.7 % (41.0-71.0); PLATELET COUNT,PLT 224 K/uL (150-400); RED BLOOD CELL COUNT 4.55 M/uL (4.10-5.30); WHITE BLOOD CELL COUNT,WBC 10.69 K/uL (3.9-11.3)
[2025-02-06 09:43] LABS: A/G RATIO 0.9 (0.9-1.6); ALANINE AMINOTRANSFERASE,ALT 23 IU/L (14-63); ALBUMIN 3.8 g/dL (3.4-5.0); ALKALINE PHOSPHATASE 51 U/L (46-116); ASPARTATE AMNIOTRANSFERASE,AST 15 IU/L (15-37); BILIRUBIN TOTAL 1.9 mg/dL (0.2-1.0); BLOOD UREA NITROGEN,BUN 8 mg/dL (7.0-18.0); CALCIUM 8.9 mg/dL (8.5-10.1); CARBON DIOXIDE,CO2 23.8 mmol/L (21.0-32.0); CHLORIDE,CL 100 mmol/L (98-107); CREATININE 0.9 mg/dL (0.6-1.0); GLUCOSE RANDOM 103 mg/dL (74-106); LIPASE 28 U/L (16-77); POTASSIUM,K 3.8 mmol/L (3.5-5.1); PROTEIN TOTAL,TP 7.9 g/dL (6.4-8.2); SODIUM,NA 137 mmol/L (136-145)
[2025-02-06 09:45] LABS: ESTIMATED GFR 85 mL/min (>60)
[2025-02-06 10:31] VITALS: BP 122/61; PULSE 100
== END 2025-02-06 10:30 | disposition home or self-care (01) ==
LOC: MW.ED 08:39
DX: K80.20 Calculus of gallbladder without cholecystitis without obstruction (principal); Z79.899 Other long term (current) drug therapy
CPT/HCPCS: 36415; 80053; 83690; 85025; 96374; 99284; J2270; 99283

== ENCOUNTER 2025-02-10 06:25 | Day surgery (SDC) | payer BC ==
[~2025-02-10 06:25] MED LIST: ceFAZolin 2 GM in Sodium Chloride 0.9% 50 ML IV ONE
[2025-02-10] MEDS: Scopalamine 1mg/3day Transdermal Patch TOP ONE (06:51)
[2025-02-10] MEDS: Lactated Ringers 1,000 ML IV SCH (07:08)
[2025-02-10] MEDS ORDERED: Rocuronium Bromide 50 MG/5 ML Syringe ONE ×2 (07:15→09:02)
[2025-02-10] MEDS ORDERED: Bupivacaine 0.5% 30 ML SDV ONE (07:15)
[2025-02-10] MEDS ORDERED: Midazolam 1 MG/ML 2 ML SDV ONE (07:15)
[2025-02-10] MEDS ORDERED: fentaNYL 100 MCG/2 ML SDV ONE (07:15)
[2025-02-10] MEDS ORDERED: Propofol 200 MG/20 ML SDV ONE (07:15)
[2025-02-10] MEDS ORDERED: Lidocaine 2% 5 ML SDV ONE (07:15)
[2025-02-10] MEDS ORDERED: Albuterol 0.083% 2.5 MG/3 ML Neb Soln NEB PRN (07:17)
[2025-02-10] MEDS ORDERED: Morphine 2 MG/ML SYRINGE IVPUSH PRN ×2 (07:17→10:19)
[2025-02-10] MEDS ORDERED: fentaNYL 50 MCG/ML SDV IVPUSH PRN (07:17)
[2025-02-10] MEDS ORDERED: Naloxone 0.4 MG/ML SDV IVPUSH PRN (07:17)
[2025-02-10] MEDS ORDERED: Phenylephrine HCl In 0.9% NaCl 1 MG/10 ML Syringe IVPUSH PRN (07:17)
[2025-02-10] MEDS ORDERED: Sodium Chloride 0.9% 20 ML ONE (07:18)
[2025-02-10] MEDS ORDERED: dexmedeTOMIDine HCl 200 MCG/2 ML SDV ONE (07:18)
[2025-02-10] MEDS ORDERED: Ropivacaine 0.5% 5 MG/ML 30 ML SDV ONE (07:19)
[2025-02-10] MEDS ORDERED: Scopalamine 1mg/3day Transdermal Patch TOP ONE (08:00)
[2025-02-10] MEDS ORDERED: ceFAZolin 1 GM Vial ONE (08:01)
[2025-02-10] MEDS ORDERED: Dexamethasone 4 MG/ML 5 ML MDV ONE (08:03)
[2025-02-10] MEDS ORDERED: Sugammadex Sodium 200 MG/2 ML VIAL IV ONE (08:03)
[2025-02-10] MEDS ORDERED: Ketorolac 30 MG/ML SDV ONE (08:03)
[2025-02-10] MEDS ORDERED: Ondansetron 4 MG/2 ML SDV ONE (08:03)
[2025-02-10] MEDS ORDERED: Bupivacaine 0.5% 10 ML SDV ONE (08:46)
[2025-02-10] MEDS ORDERED: HYDROmorphone 1 MG/ML Syringe ONE (09:45)
[2025-02-10] MEDS ORDERED: Acetaminophen/HYDROcodone 325-5 MG Tab PO PRN ×2 (10:19→10:34)
[2025-02-10] MEDS ORDERED: Lactated Ringers 1,000 ML IV SCH (10:30)
[2025-02-10] MEDS: Ondansetron 4 MG/2 ML SDV IVPUSH PRN (10:37)
[2025-02-10] MEDS: Metoclopramide 10 MG/2 ML SDV IVPUSH PRN (11:07)
[2025-02-10] MEDS: HYDROmorphone 1 MG/ML Syringe IVPUSH PRN (11:07)
[2025-02-10 12:21] VITALS: BP 98/62; PULSE 84
== END 2025-02-10 12:35 | disposition home or self-care (01) ==
LOC: MW.SDS 06:25
PROVIDERS: ATTEND Surgery
DX: K80.00 Calculus of gallbladder with acute cholecystitis without obstruction (principal); N83.209 Unspecified ovarian cyst, unspecified side
CPT/HCPCS: 47562; 64488; 81025; A9270; J0131; J0665; J0690; J1100; J1171; J1885; J2003; J2250; J2405; J2704; J2765; J2795; J3010; J7120; 00790; 64486; J3490

== ENCOUNTER 2025-02-12 12:11 | Emergency (ER) | payer BC ==
[2025-02-12] MEDS: Acetaminophen 500 MG Tab PO ONE (12:32)
[2025-02-12] MEDS: Ketorolac 30 MG/ML SDV IVPUSH ONE (12:32)
[2025-02-12] MEDS: Pantoprazole 40 MG in Sodium Chloride 0.9% 10 ML IVPUSH ONE (12:32)
[2025-02-12] MEDS: Sodium Chloride 0.9% 1,000 ML IV ONE (12:32)
[2025-02-12] MEDS: Alum Hydrox/Mag Hydrox/Simeth 15 ML, Metoclopramide 5 MG, Lidocaine 2% 5 ML PO ONE (12:32)
[2025-02-12 12:34] LABS: BASOPHILS ABSOLUTE AUTO 0.03 K/uL (0.00-0.20); BASOPHILS PERCENT AUTO 0.6 % (0.0-1.0); EOSINOPHILS ABSOLUTE AUTO 0.16 K/uL (0.00-0.45); HEMATOCRIT 35.8 % (37.0-47.0); HEMOGLOBIN 11.9 g/dL (12.0-16.0); IMMATURE GRAN ABSOLUTE AUTO 0.02 K/uL (0.00-0.05); IMMATURE GRAN PERCENT AUTO 0.4 % (0.0-0.4); LYMPHOCYTES ABSOLUTE AUTO 0.94 K/uL (1.00-4.80); LYMPHOCYTES PERCENT AUTO 17.6 % (24.0-44.0); MEAN CORPUSCULAR HEMOGLOBIN 27.7 pg (28.0-32.0); MEAN CORPUSCULAR HGB CONC 33.2 g/dL (32.0-36.0); MEAN CORPUSCULAR VOLUME 83.4 fL (83.0-99.0); MEAN PLATELET VOLUME 10.6 fL (9.4-12.3); MONOCYTES ABSOLUTE AUTO 0.56 K/uL (0.00-0.80); MONOCYTES PERCENT AUTO 10.5 % (0.0-8.0); NEUTROPHILS ABSOLUTE AUTO 3.64 K/uL (1.80-7.70); NEUTROPHILS PERCENT AUTO 67.9 % (41.0-71.0); PLATELET COUNT,PLT 219 K/uL (150-400); RED BLOOD CELL COUNT 4.29 M/uL (4.10-5.30); WHITE BLOOD CELL COUNT,WBC 5.35 K/uL (3.9-11.3)
[2025-02-12] MEDS: Ondansetron 4 MG/2 ML SDV IVPUSH ONE (12:38)
[2025-02-12 12:45] LABS: INR 1.1 (0.86-1.11)
[2025-02-12 13:05] LABS: A/G RATIO 0.8 (0.9-1.6); ALBUMIN 3.4 g/dL (3.4-5.0); ALKALINE PHOSPHATASE 280 U/L (46-116); ASPARTATE AMNIOTRANSFERASE,AST 753 IU/L (15-37); BILIRUBIN TOTAL 1.8 mg/dL (0.2-1.0); BLOOD UREA NITROGEN,BUN 6 mg/dL (7.0-18.0); C-REACTIVE PROTEIN 2.65 mg/dL (<0.3); CALCIUM 9.1 mg/dL (8.5-10.1); CARBON DIOXIDE,CO2 24.8 mmol/L (21.0-32.0); CHLORIDE,CL 105 mmol/L (98-107); CREATININE 0.7 mg/dL (0.6-1.0); EST CRCL DRUG DOSING (CG) 112.08 mL/min; GLUCOSE RANDOM 116 mg/dL (74-106); LIPASE 35 U/L (16-77); POTASSIUM,K 3.6 mmol/L (3.5-5.1); PRO B-TYPE NATRIUR PEPT,BNPPRO 220 pg/mL (0-125); PROTEIN TOTAL,TP 7.8 g/dL (6.4-8.2); SODIUM,NA 140 mmol/L (136-145)
[2025-02-12 13:08] LABS: ALANINE AMINOTRANSFERASE,ALT 1209 IU/L (14-63); ESTIMATED GFR 115 mL/min (>60)
[2025-02-12] MEDS: Iopamidol 755 MG/ML 500 ML Multipack Bottle IVPUSH STA (13:23)
[2025-02-12 13:49] LABS: APPEARANCE,URINE CLEAR; BILIRUBIN,URINE NEGATIVE (NEGATIVE); COLOR,URINE YELLOW; GLUCOSE,URINE NEGATIVE (NEGATIVE); KETONES,URINE NEGATIVE (NEGATIVE); LEUKOCYTE ESTERASE,URINE NEGATIVE (NEGATIVE); NITRITE,URINE NEGATIVE (NEGATIVE); OCCULT BLOOD,URINE SMALL (NEGATIVE); PH,URINE 6.5 (5.0-8.0); PROTEIN,URINE NEGATIVE (NEGATIVE); UROBILINOGEN,URINE 0.2 EU/dL (<2.0)
[2025-02-12 13:54] LABS: BACTERIA,URINE RARE (NEGATIVE); EPITHELIAL CELLS,URINE RARE (NONE-FEW); RBC,URINE 0-2 (0-2/HPF); WBC,URINE 0-2 (0-5/HPF)
[2025-02-12] MEDS: HYDROmorphone 0.5 MG/0.5 ML Syringe IVPUSH ONE (14:18)
[2025-02-12 14:39] VITALS: BP 120/77; PULSE 82
== END 2025-02-12 14:38 | disposition home or self-care (01) ==
LOC: MW.ED 12:11
DX: G89.18 Other acute postprocedural pain (principal); R10.84 Generalized abdominal pain; R07.9 Chest pain, unspecified; R74.01 Elevation of levels of liver transaminase levels; Z87.19 Personal history of other diseases of the digestive system; Z90.49 Acquired absence of other specified parts of digestive tract; Z79.899 Other long term (current) drug therapy
CPT/HCPCS: 36415; 71045; 74177; 80053; 81001; 83690; 83880; 84484; 84703; 85025; 85610; 85652; 86140; 93005; 96361; 96374; 96375; 99285; A9270; J1885; J2470; J7030; Q9967; 93010

== ENCOUNTER 2025-02-13 00:43 | Emergency (ER) | payer BC ==
[2025-02-13] MEDS ORDERED: Naloxone 0.4 MG/ML SDV IVPUSH PRN (01:07)
[2025-02-13] MEDS: HYDROmorphone 0.5 MG/0.5 ML Syringe IVPUSH ONE ×2 (01:16→09:16)
[2025-02-13] MEDS: Ketorolac 30 MG/ML SDV IVPUSH ONE (01:16)
[2025-02-13] MEDS: Sodium Chloride 0.9% 1,000 ML IV ONE ×2 (01:16→04:16)
[2025-02-13] MEDS: Ondansetron 4 MG/2 ML SDV IVPUSH ONE (01:16)
[2025-02-13 01:18] LABS: BASOPHILS ABSOLUTE AUTO 0.03 K/uL (0.00-0.20); BASOPHILS PERCENT AUTO 0.5 % (0.0-1.0); EOSINOPHILS ABSOLUTE AUTO 0.26 K/uL (0.00-0.45); EOSINOPHILS PERCENT AUTO 4.7 % (0.0-6.0); HEMATOCRIT 37.5 % (37.0-47.0); HEMOGLOBIN 12.3 g/dL (12.0-16.0); IMMATURE GRAN ABSOLUTE AUTO 0.02 K/uL (0.00-0.05); IMMATURE GRAN PERCENT AUTO 0.4 % (0.0-0.4); LYMPHOCYTES ABSOLUTE AUTO 1.62 K/uL (1.00-4.80); LYMPHOCYTES PERCENT AUTO 29.3 % (24.0-44.0); MEAN CORPUSCULAR HEMOGLOBIN 27.5 pg (28.0-32.0); MEAN CORPUSCULAR HGB CONC 32.8 g/dL (32.0-36.0); MEAN CORPUSCULAR VOLUME 83.9 fL (83.0-99.0); MEAN PLATELET VOLUME 10.5 fL (9.4-12.3); MONOCYTES PERCENT AUTO 10.9 % (0.0-8.0); NEUTROPHILS ABSOLUTE AUTO 2.99 K/uL (1.80-7.70); NEUTROPHILS PERCENT AUTO 54.2 % (41.0-71.0); PLATELET COUNT,PLT 221 K/uL (150-400); RED BLOOD CELL COUNT 4.47 M/uL (4.10-5.30); WHITE BLOOD CELL COUNT,WBC 5.52 K/uL (3.9-11.3)
[2025-02-13 01:32] LABS: INR 1.08 (0.86-1.11); PTT,PARTIAL THROMBOPLSTIN TIME 27.3 SEC (23.9-30.7)
[2025-02-13 01:43] LABS: A/G RATIO 0.8 (0.9-1.6); ALBUMIN 3.5 g/dL (3.4-5.0); ALKALINE PHOSPHATASE 269 U/L (46-116); ASPARTATE AMNIOTRANSFERASE,AST 425 IU/L (15-37); BILIRUBIN TOTAL 1.1 mg/dL (0.2-1.0); BLOOD UREA NITROGEN,BUN 4 mg/dL (7.0-18.0); CALCIUM 9.2 mg/dL (8.5-10.1); CARBON DIOXIDE,CO2 24.1 mmol/L (21.0-32.0); CHLORIDE,CL 102 mmol/L (98-107); CREATININE 0.8 mg/dL (0.6-1.0); EST CRCL DRUG DOSING (CG) 98.07 mL/min; GLUCOSE RANDOM 94 mg/dL (74-106); LIPASE 36 U/L (16-77); POTASSIUM,K 3.4 mmol/L (3.5-5.1); SODIUM,NA 139 mmol/L (136-145)
[2025-02-13 02:02] LABS: ESTIMATED GFR 98 mL/min (>60)
[2025-02-13 02:09] LABS: ALANINE AMINOTRANSFERASE,ALT 1074 IU/L (14-63)
[2025-02-13 04:03] LABS: APPEARANCE,URINE CLEAR; BILIRUBIN,URINE NEGATIVE (NEGATIVE); COLOR,URINE YELLOW; GLUCOSE,URINE NEGATIVE (NEGATIVE); KETONES,URINE 15 mg/dL (NEGATIVE); LEUKOCYTE ESTERASE,URINE NEGATIVE (NEGATIVE); NITRITE,URINE NEGATIVE (NEGATIVE); OCCULT BLOOD,URINE NEGATIVE (NEGATIVE); PROTEIN,URINE NEGATIVE (NEGATIVE); UROBILINOGEN,URINE 0.2 EU/dL (<2.0)
[2025-02-13] MEDS: HYDROmorphone 0.5 MG/0.5 ML Syringe IVPUSH PRN (04:16)
[2025-02-13 06:47] VITALS: BP 109/66
[2025-02-13] MEDS: Sodium Chloride 0.9% 1,000 ML IV SCH (09:16)
[2025-02-13] MEDS: droPERidol 2.5 MG/ML SDV IVPUSH ONE (11:27)
[2025-02-13 12:17] VITALS: PULSE 88
== END 2025-02-13 12:17 ==
LOC: MW.ED 00:43
DX: K80.50 Calculus of bile duct without cholangitis or cholecystitis without obstruction (principal); G89.18 Other acute postprocedural pain; R94.5 Abnormal results of liver function studies; R17 Unspecified jaundice; Z79.899 Other long term (current) drug therapy; Z90.49 Acquired absence of other specified parts of digestive tract
CPT/HCPCS: 36415; 74181; 80053; 81003; 83690; 84484; 85025; 85610; 85730; 86850; 86900; 86901; 93005; 96361; 96374; 96375; 96376; 99285; J1790; J1885; J2405; J7030; 93010